=== PATIENT | female | born 1975 | race Caucasian/White ===

== ENCOUNTER → 2021-01-04 | Outpatient (CLI) | payer OTHER ==
[~2021-01-04] MED LIST: ADDERALL 30 MG30 MG PO; ALDACTONE25 MG PO; B12INJ INJECTION; CIPROFLOXACIN500 M1 PO; DILAUDID 2 MG TA2 MG; DUOFER 28 MG TA28 MG PO; HYDROCODON-ACE1 EAC7 PO; IBUPROFEN 800800 M1 PO; LORTAB 5 MG/5001 TA1 PO; MACROBID 100 M100 M1 PO; MEDROXYPROGESTERONE INJECTION; MULTIVITAMINS PO; NAPROSYN500 MG; NEURONTIN600 MG PO; NORCO 5-325 TA1 EACH PO; PAIN & FEVER500 MG; VITAMIN D400 UNI1 PO; ZOFRAN ODT4 MG PO
== END ==
LOC: HYPER 09:47
PROVIDERS: ATTEND Emergency Medicine
DX: R21 Rash and other nonspecific skin eruption (principal); L98.412 Non-pressure chronic ulcer of buttock with fat layer exposed; L28.1 Prurigo nodularis; E66.01 Morbid (severe) obesity due to excess calories; E78.5 Hyperlipidemia, unspecified; E03.9 Hypothyroidism, unspecified; G62.9 Polyneuropathy, unspecified; G89.4 Chronic pain syndrome; J45.909 Unspecified asthma, uncomplicated; M32.9 Systemic lupus erythematosus, unspecified; F98.8 Other specified behavioral and emotional disorders with onset usually occurring in childhood and adolescence; F41.9 Anxiety disorder, unspecified; F32.9 Major depressive disorder, single episode, unspecified; Z68.36 Body mass index [BMI] 36.0-36.9, adult

== ENCOUNTER → 2021-01-24 | Day surgery (SDC) | payer OTHER ==
[~2021-01-24] VITALS: Ht 162.6 cm; Wt 97.5 kg
[~2021-01-24] MED LIST changes: +ADDERALL 20 MG20 MG PO; +NEURONTIN800 MG PO; +PROZAC PO; +TYLENOL EXTRA500 MG PO
[2021-01-24 10:48] LABS: HEMATOCRIT 32.7 % (37.0-47.0); HEMOGLOBIN 10.7 gm/dL (12.0-15.0)
[2021-01-24 10:53] VITALS: BP 95/57
[2021-01-24 13:21] VITALS: BP 95/57
== END | disposition home or self-care (01) ==
LOC: OR
PROVIDERS: ATTEND Surgery
DX: T81.89XA Other complications of procedures, not elsewhere classified, initial encounter (principal); L98.419 Non-pressure chronic ulcer of buttock with unspecified severity; Z98.890 Other specified postprocedural states; Z90.711 Acquired absence of uterus with remaining cervical stump; Z20.822 Contact with and (suspected) exposure to COVID-19; Z79.899 Other long term (current) drug therapy; Z88.2 Allergy status to sulfonamides; Z88.8 Allergy status to other drugs, medicaments and biological substances; Y83.8 Other surgical procedures as the cause of abnormal reaction of the patient, or of later complication, without mention of misadventure at the time of the procedure
CPT/HCPCS: 50010; 50101; 50386; 50403; 57119; 57120; 62110; 62900; 70005

== ENCOUNTER 2021-02-13 05:38 | Emergency (ER) | payer OTHER, MEDICAID ==
[~2021-02-13] VITALS: Ht 165.1 cm; Wt 97.5 kg
[2021-02-13 07:39] LABS: HEMATOCRIT 39.4 % (37.0-47.0); HEMOGLOBIN 12.9 gm/dL (12.0-15.0); MCH 30.3 pg (26.0-34.0); MCHC 32.8 g/dL (28.0-37.0); MCV 92.2 fL (80.0-100.0); RBC 4.27 mil/uL (4.20-5.00); RDW 13.5 % (10.5-14.5); WBC 9.1 thou/uL (4.0-11.0)
[2021-02-13 07:51] LABS: CALCIUM 8.6 mg/dL (8.5-10.1); CREATININE 0.8 mg/dL (0.6-1.0); POTASSIUM 3.9 mmol/L (3.5-5.1)
[2021-02-13 07:58] LABS: ALBUMIN 3.2 g/dL (3.4-5.0); TOTAL BILIRUBIN 0.5 mg/dL (0.2-1.0); TOTAL PROTEIN 6.3 g/dL (6.4-8.2)
[2021-02-13 09:24] VITALS: BP 130/41
== END 2021-02-13 09:27 | disposition home or self-care (01) ==
LOC: ER 05:38
PROVIDERS: Emergency Medicine
DX: M54.16 Radiculopathy, lumbar region (principal); G89.29 Other chronic pain; M54.50 Low back pain, unspecified; F32.9 Major depressive disorder, single episode, unspecified; Z86.16 Personal history of COVID-19; Z98.890 Other specified postprocedural states; Z90.710 Acquired absence of both cervix and uterus; Z87.442 Personal history of urinary calculi; Z79.891 Long term (current) use of opiate analgesic; Z79.899 Other long term (current) drug therapy; Z88.1 Allergy status to other antibiotic agents; Z88.2 Allergy status to sulfonamides; Z88.6 Allergy status to analgesic agent; W18.2XXA Fall in (into) shower or empty bathtub, initial encounter; Y93.89 Activity, other specified; Y92.238 Other place in hospital as the place of occurrence of the external cause; Y99.8 Other external cause status

== ENCOUNTER → 2021-02-14 | Outpatient (CLI) | payer OTHER, MEDICAID | LOC: HYPER 09:10 | PROVIDERS: ATTEND Emergency Medicine | DX: L98.412 Non-pressure chronic ulcer of buttock with fat layer exposed (principal); R21 Rash and other nonspecific skin eruption; L28.1 Prurigo nodularis; G89.4 Chronic pain syndrome; E78.5 Hyperlipidemia, unspecified; E03.9 Hypothyroidism, unspecified; J45.909 Unspecified asthma, uncomplicated; G62.9 Polyneuropathy, unspecified; E66.9 Obesity, unspecified; F32.9 Major depressive disorder, single episode, unspecified; F41.9 Anxiety disorder, unspecified; Z68.36 Body mass index [BMI] 36.0-36.9, adult; Z79.899 Other long term (current) drug therapy ==

== ENCOUNTER 2021-04-09 08:44 | Observation (INO) | payer OTHER ==
[~2021-04-09] VITALS: Ht 162.6 cm; Wt 96.2 kg
[2021-04-09 09:32] VITALS: BP 134/70
--- NOTE | 2021-04-09 14:12 | O ---
[facility] [place] [address] OPERATIVE REPORT Name: HOSEA GARCIA Room #: 150-7 [facility]..#: [id number] Admission: 04/09/21 Attend Phys: Kade Celestin MD, Discharge: Date of : 73 Report #: [id number] THIS REPORT FOR: cc: Eddie Gibbs MD, Ammar MD Soliman,Kade Pfeiffer MD FACS ~ DATE OF SERVICE: 04/09/2021 PREOPERATIVE DIAGNOSIS: Multiple sacral gluteal decubitus ulcers. POSTOPERATIVE DIAGNOSIS: Multiple sacral gluteal decubitus ulcers. PROCEDURES PERFORMED: 1. Excisional debridement of skin and subcutaneous tissue of a sacral decubitus wound, ultimately measuring 5 x 4 cm in dimension (20 square cm). Preoperative and postoperative wound measurements did not differ substantially. 2. Excisional debridements of skin and subcutaneous tissue from 7 separate right gluteal decubitus wounds, ultimately measuring 5 x 4 cm, 3 x 3 cm, 2 x 2 cm, 2 x 2 cm, 2 x 2 cm, 2 x 2 cm, 2 x 2 cm in dimension to total 49 square cm. Preoperative and postoperative wound measurements of each of the 7 right gluteal decubitus wounds did not change substantially. 3. Excisional debridement of skin and subcutaneous tissue of two separate left gluteal decubitus wounds, ultimately measuring 3 x 3 cm and 2 x 2 cm in dimension to total 13 square cm. Preoperative and postoperative wound measurements did not differ substantially. 4. Total surface area of wound was debrided including skin and subcutaneous tissue equals 82 square cm. SURGEON: Kade Celestin MD BRIDGE WELDER: THOMPSON Angulo. ANESTHESIA: General endotracheal anesthesia. ESTIMATED BLOOD LOSS: Minimal (less than 10 mL). COMPLICATIONS: None appreciated. SPECIMENS: All debrided tissue to pathology. INDICATIONS: The patient is a 45-year-old debilitated female with multiple nonhealing sacral gluteal decubitus wounds that have undergone previous debridement and/or continuing to be nonhealing. The patient has hypergranulation tissue with rolled borders and as such, after thorough consultation with the patient and the Wound Care service necessitates excisional and Misonix debridement today. [address] [address] OPERATIVE REPORT Name: HOSEA GARCIA Room #: 150-7 [facility].#: [id number] Admission: 04/09/21 Attend Phys: Kade Celestin MD, Discharge: Date of : 73 Report #: [id number] DESCRIPTION OF PROCEDURE: After explaining the risks, benefits and alternatives of the procedure and obtaining consent, the patient was brought to the operating room and placed supine on her hospital bed. After conducting a thorough timeout procedure, verifying correct patient and procedure, the patient was given general endotracheal anesthesia. Once adequate anesthesia was obtained, her SCDs were hooked up to pneumatic compression device and she was given a preoperative dose of antibiotics in line with the SCIP protocol. Once adequate anesthesia was then obtained, she was positioned in the prone position with all pressure points appropriately padded and her sacral gluteal decubitus wounds were fully prepped and draped in the standard surgical sterile fashion. Electrocautery was used to circumferentially debride all nonviable skin and subcutaneous tissue from the periphery of each wound and carried down to the bed of the wound, which again included just skin and subcutaneous tissue. The MirDenegx ultrasonic debridement tool was now used to remove all remaining nonviable tissue as well as biofilm from the entirety of each wound. Hemostasis was assured with gentle manual pressure and wounds were then dressed with Adaptic, DuoDERM and topical dressings in standard fashion completing the procedure. At the end of the procedure, all instrument, needle and sponge counts were correct. The patient tolerated the procedure without incident, was awakened in the operating room and transitioned to the recovery room in stable condition with no apparent complications. <ELECTRONICALLY SIGNED> By: Kade Celestin MD, FACS 04/09/21 1412 1049 [id number] Kade Celestin MD, FACS /nt
[2021-04-09 17:39] VITALS: BP 120/70
[2021-04-09] MEDS ORDERED: INTERMEZZO3.5 MG PO (18:02)
[2021-04-09 19:36] VITALS: BP 118/68
--- NOTE | 2021-04-09 19:41 | NUR ---
ASSUMED PT CARE AT 1735 FROM PACU. PT IS ALERT & ORIENTED X4. PT HAS IV SITE ON R HAND. PT USES CANE. PT HAD I&D ON SACRAL WOUND BY DR ULRICH TODAY. PT IS ON ROOM AIR. FINISHED ADMISSION. PT TOLERATED DIET WELL. ENDORSE NIGHT NURSE. PT ON THE BED SLEEPING, BED ON THE LOWEST POSITION, SIDE RAILS UP, CALL LIGHT WITHIN REACH. WILL CONTINUE TO MONITOR. FOLLOW POC.
--- NOTE | 2021-04-10 04:27 | NUR ---
Pt. rested quietly at intervals during the night when checked on during frequent rounds. She c/o buttocks pain throughout the shift and has been medicated (see emar). Dressing to buttocks has been loose and was reinforced several times. Ambulated to the bathroom with assistance of one. Bed alarm is on.
[2021-04-10 07:51] VITALS: BP 117/62
--- NOTE | 2021-04-10 08:02 | EKG ---
[address] [place] [address] ELECTROCARDIOGRAM REPORT Name: HOSEA GARCIA Room #: 454-P [facility]#: [id number] Admission: 04/09/21 Attend Phys: Kade Celestin MD, Discharge: Date of : 73 Report #: [id number] [facility] Test Date: 2021-04-09 Test Time: 09:50:38 Pat Name: HOSEA GARCIA Department: Room: [facility] Gender: F Telephone Lines Repairer: BORA : 1975 Requested By: Kade Celestin Order Number: [id number] MD: Lucian Gaines Measurements Intervals [place] Rate: 65 P: 13 ND: 159 QRS: 12 QRSD: 94 T: -9 QT: 380 QTc: 396 Interpretive Statements Sinus rhythm LVH by voltage Borderline T abnormalities, inferior leads No previous ECG available for comparison Electronically Signed On 04-10-2021 8:02:24 ORCHARD PRUNER by Lucian Gianes [email or web address] <ELECTRONICALLY SIGNED> By: Lucian Gaines MD, [facility] 04/10/21 0802 0950 0950 Lucian Gaines MD, FACC /EPI
--- NOTE | 2021-04-10 14:04 | NUR ---
ASSUMED PT CARE THIS AM. PT IS ALERT & ORIENTED X4. PT HAS IV SITE ON R HAND. PT IS UP AD [place]. REINFORCE WOUND DRESSING ON SACRAL THIS AM AND INFORMED VICE CHANCELLOR OF DR ULRICH. PT IS ON ROOM AIR. GIVEN PAIN MEDICATION PER PT REQUEST. AWAITING FOR HOME HEALTH TO BE SET UP AND POSSIBLE DC TODAY. WILL CONTINUE TO MONITOR PT. FOLLOW POC.
--- NOTE | 2021-04-10 14:05 | NUR ---
PT ADMITTED RELATED TO I&D SACRAL WOUND. CM REVIEWED CHART AND SPOKE WITH CARE TEAM. CM MET WITH PT AT BEDSIDE THIS DAY. PT APPEARED A&0X4. CM ROLE INTRODUCED. PT REPORTED SHE LIVES IN HER HOME. 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 SHE REPORTS WILL DO HER OWN WOUND CARE AND WILL MAKE HER FOLLOW UP APPT WITH WOUND CARE IN 2 WEEKS PRIOR TO DISCHARGING HOME. CM FOLLWOING REGARDING DC PLANNING.
[2021-04-10 14:37] VITALS: BP 117/62
--- NOTE | 2021-04-13 09:27 | HC ---
[facility] [place] [address] CONSULTATION Name: HOSEA GARCIA Room #: 454-P [facility] Jessie Pan#: [id number] Admission: 04/09/21 Attend Phys: Kade Celestin MD, Discharge: 04/10/21 Date of : 73 Report #: [id number] THIS REPORT FOR: cc: Eddie Gibbs MD, Ammar MD Althoff,Mello Irwin MD ~ DATE OF SERVICE: 04/10/2021 CHIEF COMPLAINT: Gluteal ulceration. HISTORY OF PRESENT ILLNESS: This is a 45-year-old female patient who has been followed as an outpatient in the clinic with gluteal ulceration. She has undergone previous debridement; however, developed hypertrophic granulation tissue and biofilm and has undergone additional sharp and Misonix debridement by Dr. Celestin yesterday. PAST MEDICAL HISTORY: Prior history of chronic back pain, morbid obesity, mild protein-calorie malnutrition. MEDICATIONS: Include ____, Prozac, gabapentin, zolpidem, vitamin B12. ALLERGIES: AMOXICILLIN, CIPRO, SULFA, TORADOL, AND "ALL ANTIBIOTICS except doxycycline and Macrobid." FAMILY HISTORY: Noncontributory. SOCIAL HISTORY: Negative for alcohol or tobacco use. REVIEW OF SYSTEMS: CONSTITUTIONAL: Denies fever, chills or weight loss. NEUROLOGICAL: Denies focal weakness, numbness or tingling. EYES: The patient denies visual changes, redness or drainage. ENT: The patient denies earache, nasal drainage or sore throat. CARDIOVASCULAR: The patient denies chest pain, palpitations or diaphoresis. PULMONARY: Denies cough or shortness of breath. GASTROINTESTINAL: The patient denies nausea, vomiting, diarrhea, or abdominal pain. ORTHOPEDIC: The patient is aware of the ulcerations on her gluteal region. Others systems in a 14-point systems are negative. PHYSICAL EXAMINATION: VITAL SIGNS: Include temperature 36.9, pulse 75, respiration of 20, blood pressure 117/62. GENERAL: This is a chronically ill-appearing female patient who appears to be in minimal distress. [facility] [address] [place] [address] CONSULTATION Name: RADHAHOSEA Room #: 454-P [facility]#: [id number] Admission: 04/09/21 Attend Phys: Kade Celestin MD, Discharge: 04/10/21 Date of : 73 Report #: [id number] HEENT: Head normocephalic. Nose and throat clear. NECK: Supple. LUNGS: Clear. ABDOMEN: Obese, soft, nontender. SKIN: Gluteal region demonstrates multiple gluteal ulcerations, mainly on the right side that are now healthy clean, granulating and without evidence of infection. NEUROLOGIC: The patient is alert, oriented, appropriate. CLINICAL IMPRESSION: 1. Stage 3 pressure ulceration of the sacral and right gluteal region, now status post debridement. 2. Chronic back pain. 3. Mild protein calorie malnutrition. RECOMMENDATIONS: At this point in time, recommend topical bordered gauze to be changed daily. She will need turning, repositioning and maximal nutritional support. She is to be discharged today. Recommend followup in the clinic to see Dr. Higgins in the next 7-10 days. I appreciate being asked to see her in consultation. <ELECTRONICALLY SIGNED> By: Mello Gomes MD 04/13/21 0927 1604 [id number] Mello Gomes MD /nt
== END 2021-04-10 15:10 | disposition home or self-care (01) ==
LOC: OR → TBA 08:47 → OR 13:25 → 4W 17:30 → OR 17:31 → 4W 17:31 → OR 18:17 → 4W 04-10 15:10
PROVIDERS: ADMIT Surgery; ATTEND Surgery
DX: L89.153 Pressure ulcer of sacral region, stage 3 (principal); Z20.822 Contact with and (suspected) exposure to COVID-19; G89.29 Other chronic pain; E66.9 Obesity, unspecified; E66.01 Morbid (severe) obesity due to excess calories; M54.9 Dorsalgia, unspecified; E44.1 Mild protein-calorie malnutrition; Z88.1 Allergy status to other antibiotic agents; Z88.8 Allergy status to other drugs, medicaments and biological substances
CPT/HCPCS: 50010; 50101; 50386; 50403; 57119; 57120; 62110; 62900; 70005

== ENCOUNTER → 2021-04-19 | Outpatient (CLI) | payer OTHER ==
[~2021-04-19] MED LIST changes: +INTERMEZZO3.5 MG PO
== END ==
LOC: HYPER 10:52
PROVIDERS: ATTEND Emergency Medicine
DX: L98.412 Non-pressure chronic ulcer of buttock with fat layer exposed (principal); R21 Rash and other nonspecific skin eruption; L28.1 Prurigo nodularis; G62.9 Polyneuropathy, unspecified; G89.4 Chronic pain syndrome; M32.9 Systemic lupus erythematosus, unspecified; E78.5 Hyperlipidemia, unspecified; E03.9 Hypothyroidism, unspecified; J45.909 Unspecified asthma, uncomplicated; E66.9 Obesity, unspecified; F32.9 Major depressive disorder, single episode, unspecified; F41.9 Anxiety disorder, unspecified; Z68.36 Body mass index [BMI] 36.0-36.9, adult; Z79.899 Other long term (current) drug therapy